=== PATIENT | female | born 1950 | race Caucasian/White ===

== ENCOUNTER → 2019-06-21 11:13 | Outpatient (CLI) | payer MEDICARE, SELFPAY ==
--- NOTE | ~2019-06-21 | MM_ITS ---
EXAMINATION: MM screening [facility] BI w jerardo HISTORY: Screening mammogram TECHNIQUE: Craniocaudal and mediolateral oblique 3-D tomosynthesis images were obtained and synthetic 2-D images were generated. CAD analysis was submitted and interpreted. COMPARISON: Comparison to multiple prior studies sequentially, with oldest reviewed study dated 10/2012. BREAST PARENCHYMAL COMPOSITION: There are scattered areas of fibroglandular density. FINDINGS: There is no evidence of suspicious mass, calcification, or architectural distortion to sugg est malignancy in either breast. There has been no suspicious interval change. IMPRESSION: 1. No mammographic evidence of malignancy. 2. Recommend routine screening mammography in one year. BI-RADS Category 1: Negative Reviewed, dictated and finalized at location A.
== END ==
PROVIDERS: PCP Family Medicine Sports Medicine; Visit Provider Obstetrics & Gynecology
DX: Z12.31 Encounter for screening mammogram for malignant neoplasm of breast (principal)
CPT/HCPCS: 77063; 77067

== ENCOUNTER → 2020-07-27 10:28 | Outpatient (CLI) | payer MEDICARE, SELFPAY ==
--- NOTE | ~2020-07-27 | MM_ITS ---
EXAMINATION: MM screening [facility] BI w jerardo HISTORY: Screening mammogram TECHNIQUE: Craniocaudal and mediolateral oblique 3-D tomosynthesis images were obtained and synthetic 2-D images were generated. CAD analysis was submitted and interpreted. COMPARISON: 06/21/2019, 05/18/2018, 05/15/2017, 05/13/2016 BREAST PARENCHYMAL COMPOSITION: There are scattered areas of fibroglandular density. FINDINGS: There is no evidence of suspicious mass, calcification, or architectural distortion to sugg est malignancy in either breast. There has been no suspicious interval change. IMPRESSION: 1. No mammographic evidence of malignancy. 2. Recommend routine screening mammography in one year. BI-RADS Category 1: Negative Reviewed, dictated and finalized at location A.
== END ==
PROVIDERS: PCP Family Medicine Sports Medicine; Visit Provider Obstetrics & Gynecology
DX: Z12.31 Encounter for screening mammogram for malignant neoplasm of breast (principal)
CPT/HCPCS: 77063; 77067

== ENCOUNTER → 2021-07-30 10:35 | Outpatient (CLI) | payer MEDICARE, SELFPAY ==
--- NOTE | ~2021-07-30 | MM_ITS ---
EXAMINATION: MM screening [facility] BI w jerardo HISTORY: Screening TECHNIQUE: Craniocaudal and mediolateral oblique 3-D tomosynthesis images were obtained and synthetic 2-D images were generated. CAD analysis was submitted and interpreted. COMPARISON: Comparison to multiple prior studies sequentially, with oldest reviewed study dated 07/2015. BREAST PARENCHYMAL COMPOSITION: There are scattered areas of fibroglandular density. FINDINGS: There is no evidence of suspicious mass, calcification, or architectural distortion to sugg est malignancy in either breast. There has been no suspicious interval change. IMPRESSION: 1. No mammographic evidence of malignancy. 2. Recommend routine screening mammography in one year. BI-RADS Category 1: Negative Reviewed, dictated and finalized at location A.
== END ==
PROVIDERS: PCP Family Medicine Sports Medicine; Visit Provider Obstetrics & Gynecology Gynecology
DX: Z12.31 Encounter for screening mammogram for malignant neoplasm of breast (principal)
CPT/HCPCS: 77063; 77067

== ENCOUNTER 2021-12-03 01:08 | Day surgery (SDC) | payer MEDICARE, SELFPAY ==
[2021-12-03] VITALS (8 sets, daily range): BP systolic 93–127; BP diastolic 57–88; PULSE 45–97; RESP 12–21; TEMP 36.6; O2SAT 96–98; BMI 21.5
--- NOTE | 2021-12-03 08:30 | ECG_ITS ---
Measurements Intervals [place] Rate: 58 P: 79 CO: 202 QRS: 67 QRSD: 110 T: 55 QT: 457 QTc: 453 Interpretive Statements SINUS BRADYCARDIA WITH OCCASIONAL SUPRAVENTRICULAR PREMATURE COMPLEXES LOW QRS VOLTAGE IN PRECORDIAL LEADS [QRS DEFLECTION < 1.0 mV IN CHEST LEADS] POOR R-WAVE PROGRESSION INCOMPLETE RIGHT BUNDLE BRANCH BLOCK COMPARED TO ECG 12/03/2021 08:50:11 NO SIGNIFICANT CHANGE Electronically Signed On 12-03-2021 17:02:29 CDT by Montez Stock M.D.
[2021-12-03 09:20] LABS: Anion Gap 9 mmol/L (8-16); Blood Urea Nitrogen 15 mg/dL (7-17); Calcium 9.5 mg/dL (8.4-10.2); Carbon Dioxide 28 mmol/L (22-30); Chloride 100 mmol/L (98-107); Estimated CRCL calculation 67 ml/min; Estimated Glomerular Filt Rate > 60; Glucose 109 mg/dL (65-110); Magnesium 2.1 mg/dL (1.6-2.3); Potassium 4.5 mmol/L (3.4-5.0); Sodium 137 mmol/L (137-145)
--- NOTE | 2021-12-03 09:24 | P.SEDATION_ITS ---
Moderate Sedation Note-Pt Data Patient Data Diagnosis: Recurrent atrial fibrillation Present Complaint: Palpitation Procedure to be performed/Plan: DC cardioversion Allergies Allergy/AdvReac Type Severity Reaction Status Date / Time No Known Allergies Allergy Unknown Verified 12/03/21 08:53 Home Medications Medication Instructions Recorded Confirmed Type levothyroxine 75 mcg tablet 75 mcg DAILY 12/03/21 12/03/21 History rivaroxaban 20 mg tablet (Xarelto) 20 mg PO DAILY 12/03/21 12/03/21 History simvastatin 10 mg tablet 10 mg PO DAILY 12/03/21 12/03/21 History sotalol 80 mg tablet 120 mg PO BID 12/03/21 12/03/21 History Current Medications: Active Medications Sodium Chloride (Normal Saline Iv) 1,000 mls @ 30 mls/hr IV CONT .Q24H MAYO Sedation/Anesthesia: No previous sedation/anesthesia problems (including family history). [facility] Family History Family History (Updated 12/02/13 @ 07:13 by DOCTOR UNKNOWN) Father Malignant neoplasm of prostate Mother Family history of heart disease in male family member before age 55 Other Carcinoma of colon Hypertension Social History Social History Smoking status: Never smoker Alcohol intake: current Mod Sed Physical Exam Physical Exam Pre Procedural Exam: Normal: Appearance, Nose, Neck, Throat, Airway, Lungs, Heart Size, Neuro Exam and Extremities and Variation: Heart Rate and Heart Rhythm (Irregularly irregular) Hours since solid foods: 12 Hours since liquid intake: 12 Mallampati Classification: class II Internal Medicine - PN: Obj Da Vital Signs Vital Signs: Vital Signs - 24 hr 12/03/21 09:22 Temperature 36.6 C Pulse Rate 97 Respiratory Rate 16 Blood Pressure 123/87 Pulse Oximetry 98 Oxygen Delivery Room Air Meds/Results Medications: Active Medications Generic Name Dose Route Start Last Admin Trade Name Freq PRN Reason Stop Dose Admin Sodium Chloride 1,000 mls @ 30 mls/hr 12/03/21 08:30 Normal Saline Iv IV CONT .Q24H MAYO Labs CBC & Chem 7: 12/03/21 08:57 Labs: Laboratory Results - last 24 hr 12/03/21 08:57 Sodium 137 Potassium 4.5 Chloride 100 Carbon Dioxide 28 Anion Gap 9 BUN 15 Creatinine 0.80 Estim Creat Clear Calc 67 Estimated GFR > 60 Glucose 109 Calcium 9.5 Magnesium 2.1 ASA Classification/Sedation ASA Classification/Sedation ASA Class: II Emergent: No Risks: Risks, benefits and alternatives explained and patient/family accepted plan for sedation. Patient re-evaluated immediately prior to sedation.
--- NOTE | 2021-12-03 09:34 | WPDCARDPROC ---
Cardiac Cath Procedure Note Date of procedure:: 12/03/21 Performing physician:: Montez Stock MD Indication:: Recurrent atrial fibrillation Brief clinical history:: This is a 71-year-old lady with a history of atrial fibrillation seen in the office last week with a symptomatic recurrence of her arrhythmia. She is taking sotalol and anticoagulated with Xarelto. An attempt at restoring sinus rhythm electrically has been scheduled for this morning Procedure Procedure performed:: DC cardioversion Sedation/Medication given:: Propofol in aliquots total dosage of 60 mg Estimated blood loss:: 0 Procedure note:: Patient was brought to the cardiac catheterization lab in the postabsorptive state in the holding area. Defibrillator patches were placed in the AP position. IV access was established in the right upper extremity. She was then given propofol and a aliquots a total dosage of 60 mg was given. This provided excellent sedation. She was then DC cardioverted in a synchronized fashion delivering 200 joules x1 shock restoring normal sinus rhythm/sinus bradycardia Findings:: As above Conclusion:: Successful uncomplicated DC cardioversion terminating atrial fibrillation restoring sinus bradycardia using 200 joules x1 shock Montez Stock MD [facility]
--- NOTE | 2021-12-03 10:15 | ECG_ITS ---
Measurements Intervals [place] Rate: 86 P: SD: 0 QRS: 60 QRSD: 118 T: 60 QT: 365 QTc: 439 Interpretive Statements ATRIAL FIBRILLATION INCOMPLETE RIGHT BUNDLE BRANCH BLOCK [90+ ms QRS DURATION, TERMINAL R IN V1/V2, 40+ ms S IN I/aVL/V4/V5/V6] POOR R-WAVE PROGRESSION ABNORMAL RHYTHM ECG NO PREVIOUS ECG AVAILABLE FOR COMPARISON Electronically Signed On 12-03-2021 16:59:58 CDT by Montez Stock M.D.
== END 2021-12-03 12:45 | disposition home or self-care (01) ==
PROVIDERS: PCP Family Medicine Sports Medicine; Visit Provider Specialist
PROC: 5A2204Z Restoration of Cardiac Rhythm, Single (ICD-10-PCS; principal; 2021-12-03 10:00)
DX: I48.0 Paroxysmal atrial fibrillation (principal); Z79.01 Long term (current) use of anticoagulants
CPT/HCPCS: 36415; 80048; 83735; 92960; J2704; J7030

== ENCOUNTER 2021-12-18 11:39 | Observation (INO) | payer MEDICARE, SELFPAY ==
[2021-12-18] VITALS (13 sets, daily range): BP systolic 100–153; BP diastolic 72–107; PULSE 58–146; RESP 12–18; TEMP 36.4–37; O2SAT 95–100; BMI 21.0
--- NOTE | ~2021-12-18 | XR_ITS ---
EXAMINATION: XR chest 2V DATE: 12/18/2021 12:32 INDICATION: Atrial fibrillation TECHNIQUE: PA and lateral views of the chest are obtained. COMPARISON: 07/09/2014 FINDINGS: The lungs are free of acute opacities. No pleural effusion or pneumothorax. The cardiomedia stinal silhouette is normal. There is moderate thoracic spondylosis. There is scarring in the lung ap ices. IMPRESSION: 1. No acute cardiopulmonary abnormality. Reviewed, dictated and finalized at location B.
--- NOTE | 2021-12-18 11:52 | ECG_ITS ---
Measurements Intervals [place] Rate: 0 P: NE: 0 QRS: QRSD: 0 T: QT: 0 QTc: 0 Interpretive Statements ATRIAL FIBRILLATION WITH RAPID VENTRICULAR ESPONSE VENTRICULAR PREMATURE COMPLEX INCOMPLETE RIGHT BUNDLE BRANCH BLOCK BASELINE ARTIFACT- AVR, AVL, AVF ABNORMAL ECG COMPARED TO ECG 12/03/2021 09:38:50 ATRIAL FIBRILLATION NOW PRESENT Electronically Signed On 12-18-2021 12:12:16 CDT by Alcon Rivera D.O.
[2021-12-18 12:00] LABS: Basophils Absolute Auto 0.1 K/mm3 (0.0-0.1); Basophils Percent Auto 0.6 % (0.2-1.2); Eosinophils Absolute Auto 0.1 K/mm3 (0-0.3); Eosinophils Percent Auto 0.7 % (0-4.4); Hematocrit 45.3 % (37.0-47.0); Hemoglobin 15.3 g/dL (12.0-15.0); Immature Granulocyte Absolute 0.02 K/mm3 (0.00-0.031); Immature Granulocyte Percent A 0.2 % (0-0.5); Lymphocytes Absolute Auto 1.91 K/mm3 (0.9-3.2); Lymphocytes Percent Auto 23.7 % (18.3-44.2); Mean Corpuscular HGB Conc 33.8 g/dl (32-36); Mean Corpuscular Hemoglobin 32.2 pg (26-34); Mean Corpuscular Volume 95.4 fl (80-100); Mean Platelet Volume 10.2 fl (7.4-10.4); Monocytes Absolute Auto 0.8 K/mm3 (0.1-0.6); Monocytes Percent Auto 10.3 % (2.6-8.5); Neutrophils Absolute Auto 5.2 K/mm3 (1.3-6.7); Neutrophils Percent Auto 64.5 % (45.5-73.1); Platelet Count Result 276 k/mm3 (150-375); Red Blood Count 4.75 M/mm3 (4.2-5.4); Red Cell Distribution Width 11.9 % (11.5-14.5); White Blood Count 8.1 K/mm3 (4.5-10.0)
--- NOTE | 2021-12-18 12:06 | ED.ARRPALP ---
HPI - Arrhythmia/Palpitations General Chief Complaint: Arrhythmia/Palpitations Stated Complaint: sent from DR joseph - 'afib RVR' Time Seen by Provider: 12/18/21 12:03 Source: patient Mode of arrival: ambulatory Limitations: no limitations History of Present Illness HPI narrative: The patient is a 71 yo female with a PMH of HLD, Hypothyroidism, a fib with RVR on anticoagulation, presenting to the ER for intermittent palpitations. Pt had recent cardioversion two weeks ago. Pt reports mild dyspnea, but no significant chest pain. She also endorses mild fatigue that is associated with her palpitation. She denies syncope, dizziness, lightheadedness. Pt was sent by Dr. Stock this morning after EKG showed a fib with RVR. Related Data Home Medications Medication Instructions Recorded Confirmed levothyroxine 75 mcg tablet 75 mcg DAILY 12/03/21 12/03/21 rivaroxaban 20 mg tablet (Xarelto) 20 mg PO DAILY 12/03/21 12/03/21 simvastatin 10 mg tablet 10 mg PO DAILY 12/03/21 12/03/21 Allergies Allergy/AdvReac Type Severity Reaction Status Date / Time No Known Allergies Allergy Unknown Verified 12/18/21 11:53 Review of Systems Review of Systems: CONSTITUTIONAL: Denies fever, chills, or sweats. EYES: Denies visual changes, redness, or discharge. ENT: Denies rhinorrhea, congestion, sore throat, or otalgia. CARDIOVASCULAR: Denies chest pain, reports palpitations RESPIRATORY: Denies cough or dyspnea. GASTROINTESTINAL: Denies abdominal pain, nausea, vomiting, or diarrhea. GENITOURINARY: Denies dysuria or hematuria. SKIN: Denies rash or itching. MUSCULOSKELETAL: Denies back pain, joint pain, or myalgia. NEUROLOGIC: Denies headache, numbness, or weakness. Reports fatigue. [facility] Family History Family History (Updated 12/02/13 @ 07:13 by DOCTOR UNKNOWN) Father Malignant neoplasm of prostate Mother Family history of heart disease in male family member before age 55 Other Carcinoma of colon Hypertension Social History Social History Smoking status: Never smoker Alcohol intake: current Exam Narrative: GENERAL: Awake, alert, conversant HEAD: Normocephalic, atraumatic. EYES: PERRLA and EOMI. ENT: Nares clear, no rhinorrhea or epistaxis. Mucous membranes moist. NECK: Supple. CHEST: No respiratory distress, breathing even and non labored HEART: Irregularly irregular, consistent atrial fibrillation with RVR ABDOMEN:Non distended, non tender EXTREMITIES: Normal range of motion. No edema. SKIN: Warm, dry, no rash. NEURO:No focal deficits. Alert and oriented x3 Course Vital Signs Vital signs: Vital Signs Temperature 37.0 C 12/18/21 11:40 Pulse Rate 143 H 12/18/21 11:40 Respiratory Rate 18 12/18/21 11:40 Blood Pressure 124/83 12/18/21 11:40 Pulse Oximetry 98 12/18/21 11:40 Oxygen Delivery Room Air 12/18/21 11:40 Temperature 37.0 C 12/18/21 11:40 Pulse Rate 80 12/18/21 15:35 Respiratory Rate 14 12/18/21 15:35 Blood Pressure 153/107 H 12/18/21 15:35 Pulse Oximetry 95 12/18/21 15:35 Oxygen Delivery Room Air 12/18/21 11:40 MDM - Arrhythmia/Palpitations MDM Narrative Medical decision making narrative: Patient presented to the emergency department for evaluation after being seen by her development scientist for atrial fibrillation with RVR, with associated mild fatigue, no chest pain and mild palpitations. The time of assessment, patient is in A. fib with RVR without ischemic changes present on EKG. Other laboratory results are reassuring. The patient was given IV fluids, IV magnesium, and after discussion with cardiology service, was recommended for her to be given oral metoprolol and admitted for observation to their service. Patient does have a mildly elevated BNP without a troponin elevation. No sign of congestive heart failure or fluid overloaded state. Differential Diagnosis Differential diagnosis: Likely palpitations, sinus tachycardia, artial fibrillation, artial flutt
[2021-12-18 12:10] LABS: INR 1.2; Prothrombin Time 14.2 Seconds (11.1-14.7)
[2021-12-18 12:11] LABS: Partial Thromboplastin Time 33.6 SECONDS (22.3-36.8)
[2021-12-18 12:17] LABS: Alanine Aminotransferase 28 U/L (6-35); Albumin Level 4.5 g/dL (3.5-5.1); Alkaline Phosphatase 88 U/L (38-126); Anion Gap 7 mmol/L (8-16); Aspartate Amino Transferase 30 U/L (14-36); Bilirubin,Total 0.5 mg/dL (0.2-1.3); Blood Urea Nitrogen 20 mg/dL (7-17); Calcium 9.7 mg/dL (8.4-10.2); Carbon Dioxide 26 mmol/L (22-30); Chloride 103 mmol/L (98-107); Estimated CRCL calculation 72 ml/min; Estimated Glomerular Filt Rate > 60; Glucose 170 mg/dL (65-110); Lipase 98 U/L (23-300); Potassium 4.4 mmol/L (3.4-5.0); Sodium 136 mmol/L (137-145)
[2021-12-18 12:29] LABS: Troponin I < 0.012 ng/mL (0.000-0.034)
[2021-12-18 12:47] LABS: NT Pro B Type Natriuretic Pept 3650 pg/mL (5-100)
[2021-12-18] MEDS: MAGNESIUM SULF 2 GM/WATER 50ML 2 GM/50 ML BAG IVPB (13:46)
[2021-12-18] MEDS: METOPROLOL TARTRATE 50 MG TAB 25 MG PO (14:16)
[2021-12-18 14:57] LABS: Troponin I < 0.012 ng/mL (0.000-0.034)
[2021-12-18 15:15] LABS: Magnesium 3.2 mg/dL (1.6-2.3); Phosphorus 3.3 mg/dL (2.5-4.5)
--- NOTE | 2021-12-18 15:53 | ADMGEN ---
This patient, Rosalba Santizo, was admitted to Medical Room 246-. Patient/family oriented to hospital policies and general routines including ID bracelet, bed and alarms, visiting hours, pain management, procedures, bathroom and other care routines, personal items, smoking policy, room service/diet, and visiting hours. Information on how to activate the Rapid Response Team has been discussed. Patient/Family are encouraged to report perceived risks to care and to ask questions if they do not understand what they are told or what they should do.
[2021-12-18 18:56] LABS: Troponin I < 0.012 ng/mL (0.000-0.034)
[2021-12-18] MEDS: SOTALOL HCL 40 MG, SOTALOL HCL 80 MG 120 MG PO (20:13)
[2021-12-18] MEDS: METOPROLOL TARTRATE 25 MG TABLET PO (20:22)
[2021-12-18] MEDS: RIVAROXABAN 20 MG TABLET PO (20:22)
[2021-12-18] MEDS: SIMVASTATIN 10 MG TABLET PO (20:22)
[2021-12-19] VITALS (10 sets, daily range): BP systolic 109–118; BP diastolic 73–75; PULSE 65–112; RESP 16–18; TEMP 36–36.2; O2SAT 99–100
[2021-12-19] MEDS: LEVOTHYROXINE SODIUM 75 MCG TABLET BY MOUTH (05:58)
[2021-12-19] MEDS: METOPROLOL TARTRATE 25 MG TABLET PO (08:38)
[2021-12-19] MEDS: SOTALOL HCL 40 MG, SOTALOL HCL 80 MG 120 MG PO (08:39)
[2021-12-19] MEDS: ACETAMINOPHEN 325 MG TABLET 650 MG PO (08:43)
--- NOTE | 2021-12-19 08:55 | ECG_ITS ---
Measurements Intervals [place] Rate: 89 P: [place]: 0 QRS: 14 QRSD: 105 T: 32 QT: 388 QTc: 474 Interpretive Statements ATRIAL FIBRILLATION INCOMPLETE RIGHT BUNDLE BRANCH BLOCK ABNORMAL ECG COMPARED TO ECG 12/18/2021 11:51:18 HR HAS DECREASED Electronically Signed On 12-19-2021 14:32:17 CDT by Alcon Rivera D.O.
--- NOTE | 2021-12-19 08:57 | PM.IMHP ---
H&P: HPI History of Present Illness Date/Time: date of service: 12/19/21 08:57 Chief Complaint: I am back in atrial fibrillation with feeling tired, Short of breath, and palpitations Narrative: Patient is a very pleasant 71 year female with a past medical history significant for mixed hyperlipidemia, hypothyroidism and paroxysmal atrial fibrillation on systemic anticoagulation with Xarelto having been maintained on sotalol who underwent cardioversion for AFib with a RVR symptomatic on 12/04/2021 which was successful. However, she proximally 2 days or so prior to admission she began to experience palpitations, fatigue decreased activity tolerance and shortness of breath with exertion but no near-syncope or syncope. She denies chest pain, edema, orthopnea or PND. She presented to the office where 12 lead EKG confirmed AFib with RVR. Recommendations per Dr. Stock were to admit her to the hospital for heart rate control strategy in the interval to improve symptoms tolerance prior to referral to palpation electrophysiology evaluation for ablation options. Patient is feeling better with improved heart rate control yet is not as active as she is at home. She did note some palpitations and fatigue ambulating to the restroom but denies significant shortness of breath. Telemetry heart rate overnight was reasonably controlled in the 80's to 100s While asleep increasing to the 120 to 130s with ambulation. While she is currently aware of her atrial fibrillation of present she is comfortable at rest. she has not missed a single dose of anticoagulation and has been compliant with medications as prescribed. Review of Systems Review of Systems: No fevers, chills, near-syncope, syncope, bright red blood per rectum, melena, hematuria dysuria, headache, vision changes, orthopnea, PND or significant weight gain or weight loss hair skin or nail changes. Remainder of the review of systems otherwise negative. All systems reviewed & are unremarkable except as noted in HPI and below Constitutional: Constitutional: Reports as per HPI and Reports no additional constitutional complaints Eyes: Eyes: Reports as per HPI and Reports no additional eye complaints ENT: Reports system reviewed and no additional complaints, except as documented and Reports as per HPI Cardiovascular: Cardiovascular: Reports as per HPI and Reports no additional cardiovascular complaints Respiratory: Respiratory: Reports as per HPI and Reports no additional respiratory complaints Gastrointestinal: Gastrointestinal: Reports as per HPI and Reports no additional gastrointestinal complaints Genitourinary: Genitourinary: Reports as per HPI Musculoskeletal: Musculoskeletal: Reports no additional musculoskeletal complaints and Reports as per HPI Integumentary/Breasts: Skin/Breast: Reports system reviewed and no additional complaints, except as docu and Reports as per HPI Neurologic: Reports system reviewed and no additional complaints, except as documented and Reports as per HPI Psychiatric: Psychiatric: Reports no additional psychiatric complaints and Reports as per HPI Endocrine: Endocrine: Reports no additional endocrine complaints and Reports as per HPI Hematologic/Lymphatic: Hematologic/Lymphatic: Reports no additional hematologic/lymphatic complaints and Reports as per HPI Allergic/Immunologic: Allergic/Immunologic: Reports no additional allergic/immunologic complaints and Reports as per HPI PMFSH Past Medical History Medical History Atrial fibrillation with RVR Hyperlipidemia Hypothyroidism Surgical History Surgical History No known problems Family History Family History Father Malignant neoplasm of prostate Mother Family history of heart disease in male family member before age 55 Other Carc
[2021-12-19] MEDS: METOPROLOL TARTRATE 12.5 MG TABLET PO (10:08)
--- NOTE | 2021-12-19 15:53 | PM.DS ---
DS: Admitting Diagnosis Discharge Date 12/19/2021 Admitting Diagnosis Atrial fibrillation with rapid ventricular response DS: Discharge Diagnosis Discharge Diagnosis (1) Atrial fibrillation with RVR: Code(s): I48.91 - Unspecified atrial fibrillation Status: Acute (2) Encounter for monitoring sotalol therapy: Code(s): Z51.81 - Encounter for therapeutic drug level monitoring; Z79.899 - Other usp (current) drug therapy Status: Acute (3) Chronic anticoagulation: Code(s): Z79.01 - intermediate (current) use of anticoagulants Status: Acute DS: Summary Hospital Course Reason for hospitalization: Symptomatic atrial fibrillation with rapid ventricular response Hospital Course: Patient was admitted as an outpatient by Dr. Stock for heart rate control strategy with AFib with RVR which patient was quite symptomatic. She will be referred to electrophysiology outpatient for additional management considerations as she has essentially failed sotalol after having recent cardioversion and prompt recurrence of AFib with RVR. However, given the temporary nature of antiarrhythmic management options due to the need to wash out sotalol prior to initiating alternative antiarrhythmic therapy the decision was made to continue sotalol and add additional beta-rikki therapy for rate control. She metoprolol tartrate 25 mg twice daily was up titrated to 37.5 mg twice daily which heart rate blood pressure Well tolerated with much better control. With ambulation her heart rate was up to the 120s and patient tolerated this much better than prior to admission. While she is still symptomatic this is acceptable to her and is comfortable discharge home. We discussed at great length suboptimal nature of the management and the ongoing likelihood she will be at least somewhat symptomatic but to minimize this at least to a tolerable degree prior to her evaluation with electrophysiology. Patient was very comfortable with this plan of care. Status at Discharge Cognitive/behavioral status at discharge: Competent Functional status at discharge: independent ambulation Time Spent with Patient Time attestation: Total time spent providing and/or coordinating discharge services: 32 minutes Time spent: Greater than 30 minutes (32 minutes) Exam Narrative: General: very pleasant female sitting upright in bed no apparent distress breathing comfortably speaking full sentences,Well developed, alert and oriented x3. pleasant, and cooperative. Head: atraumatic, normocephalic Eyes: EOM intact, sclerae anicteric, conjunctivae unremarkable Ears/Nose: external inspection of ears and nose were grossly normal Mouth/Throat: oral mucosa pink and moist Neck: supple, normal range of motion, no jugular venous distention or carotid bruits, thyroid nonpalpable, trachea midline. Cardiac: tachycardic, irregularly irregular rate and rhythm, normal S1-S2, no murmurs Lungs: Clear to auscultation bilaterally, no rales, wheezes, or rhonchi. Abdomen: Soft, nontender, nondistended, positive bowel sounds throughout. No appreciable hepatosplenomegaly, no rebound guarding or rigidity noted. Abdominal aorta nonpalpable, no appreciable bruits. Extremities: No edema, clubbing, and or cyanosis. Extremities warm and well perfused. Skin: Warm and dry without ecchymoses, rashes, and/or petechiae. Musculoskeletal: Muscle strength and tone intact throughout without obvious deformities. Vascular: Carotid upstrokes 2+ bilaterally, radial pulses 2+ bilaterally, dorsalis pedis pulses 2+ bilaterally, posterior tibialis pulses palpable bilaterally. Neurologic: Cranial nerves 2-12 grossly intact, examination grossly nonfocal Psychiatric: Mood calm and appropriate. DS: Data Data Completed and Pending Labs on day of discharge: Labs from last 24 hours 12/18/21 18:17 Troponin I < 0.012 Discharge Plan
== END 2021-12-19 17:41 | disposition home or self-care (01) ==
LOC: ANHED 14:36 → ANH2MED 14:51
PROVIDERS: Emergency Medicine; Admitting Provider Internal Medicine Cardiovascular Disease; Emergency Provider Emergency Medicine; PCP Family Medicine Sports Medicine; Visit Provider Internal Medicine Cardiovascular Disease
DX: I48.91 Unspecified atrial fibrillation (principal); R00.2 Palpitations; E78.5 Hyperlipidemia, unspecified; E03.9 Hypothyroidism, unspecified; R06.00 Dyspnea, unspecified; R53.83 Other fatigue; R79.89 Other specified abnormal findings of blood chemistry; I49.3 Ventricular premature depolarization; I45.10 Unspecified right bundle-branch block; Z79.01 Long term (current) use of anticoagulants; Z79.899 Other long term (current) drug therapy; Z82.49 Family history of ischemic heart disease and other diseases of the circulatory system
CPT/HCPCS: 36415; 71046; 80053; 83690; 83735; 83880; 84100; 84443; 84484; 85025; 85610; 85730; 93005; 96365; 99285; A9270; G0378; J3475

== ENCOUNTER 2022-01-11 10:41 | Outpatient (CLI) | payer MEDICARE, SELFPAY | END 2022-01-11 10:42 | disposition home or self-care (01) | LOC: ANHLAB 10:44 | PROVIDERS: PCP Family Medicine Sports Medicine | DX: I33.0 Acute and subacute infective endocarditis (principal) | CPT/HCPCS: 87040 ==

== ENCOUNTER → 2022-08-01 10:20 | Outpatient (CLI) | payer MEDICARE, SELFPAY ==
--- NOTE | ~2022-08-01 | MM_ITS ---
EXAMINATION: MM screening [place] BI w jerardo HISTORY: Screening mammogram TECHNIQUE: Craniocaudal and mediolateral oblique 3-D tomosynthesis images were obtained and synthetic 2-D images were generated. CAD analysis was submitted and interpreted. COMPARISON: July 30, 2021, July 27, 2020, June 21, 2019 bilateral screening mammogram examinations BREAST PARENCHYMAL COMPOSITION: There are scattered areas of fibroglandular density. FINDINGS: There is no evidence of suspicious mass, calcification, or architectural distortion to sugg est malignancy in either breast. There has been no suspicious interval change. IMPRESSION: 1. No mammographic evidence of malignancy. 2. Recommend routine screening mammography in one year. BI-RADS Category 1: Negative Reviewed, dictated and finalized at location A.
== END ==
PROVIDERS: PCP Family Medicine Sports Medicine; Visit Provider Advanced Practice Midwife
DX: Z12.31 Encounter for screening mammogram for malignant neoplasm of breast (principal)
CPT/HCPCS: 77063; 77067

== ENCOUNTER 2023-08-06 10:08 | Outpatient (CLI) | payer MEDICARE, SELFPAY ==
[2023-08-06 10:29] LABS: Basophils Percent Auto 0.7 % (0.2-1.2); Eosinophils Absolute Auto 0.1 K/mm3 (0-0.3); Hemoglobin 13.6 g/dL (12.0-15.0); Lymphocytes Absolute Auto 1.78 K/mm3 (0.9-3.2); Lymphocytes Percent Auto 32.9 % (18.3-44.2); Mean Corpuscular Hemoglobin 32.6 pg (26-34); Mean Corpuscular Volume 95.9 fl (80-100); Mean Platelet Volume 9.7 fl (7.4-10.4); Monocytes Absolute Auto 0.7 K/mm3 (0.1-0.6); Monocytes Percent Auto 13.1 % (2.6-8.5); Neutrophils Absolute Auto 2.8 K/mm3 (1.3-6.7); Neutrophils Percent Auto 51.3 % (45.5-73.1); Platelet Count Result 232 k/mm3 (150-375); Red Blood Count 4.17 M/mm3 (4.2-5.4); White Blood Count 5.4 K/mm3 (4.5-10.0)
[2023-08-06 10:39] LABS: Anion Gap 5 mmol/L (4-12); Blood Urea Nitrogen 16 mg/dL (7-17); Calcium 9.8 mg/dL (8.4-10.2); Carbon Dioxide 29 mmol/L (22-30); Chloride 103 mmol/L (98-107); Estimated Glomerular Filt Rate > 60; Glucose 89 mg/dL (65-110); Potassium 4.6 mmol/L (3.4-5.0); Sodium 137 mmol/L (137-145)
== END 2023-08-06 10:09 | disposition home or self-care (01) ==
LOC: ANHLAB 10:11
PROVIDERS: PCP Family Medicine; Visit Provider Internal Medicine Cardiovascular Disease
DX: I48.91 Unspecified atrial fibrillation (principal); Z01.812 Encounter for preprocedural laboratory examination
CPT/HCPCS: 36415; 80048; 85025

== ENCOUNTER 2023-11-17 12:33 | Outpatient (CLI) | payer MEDICARE, SELFPAY ==
--- NOTE | ~2023-11-17 | MM_ITS ---
EXAMINATION: MM screening [facility] BI w jerardo HISTORY: Screening TECHNIQUE: Craniocaudal and mediolateral oblique 3-D tomosynthesis images were obtained and synthetic 2-D images were generated. CAD analysis was submitted and interpreted. COMPARISON: Comparison to multiple prior studies sequentially, with oldest reviewed study dated 05/18. BREAST PARENCHYMAL COMPOSITION: Not dense: There are scattered areas of fibroglandular density. FINDINGS: There is no evidence of suspicious mass, calcification, or architectural distortion to sugg est malignancy in either breast. There has been no suspicious interval change. IMPRESSION: 1. No mammographic evidence of malignancy. 2. Recommend routine screening mammography in one year. BI-RADS Category 1: Negative Reviewed, dictated and finalized at location B.
== END 2023-11-17 12:34 ==
LOC: MICIMG 12:35
PROVIDERS: PCP Family Medicine; Visit Provider Family Medicine
DX: Z12.31 Encounter for screening mammogram for malignant neoplasm of breast (principal)
CPT/HCPCS: 77063; 77067

== ENCOUNTER → 2024-08-12 01:08 | Day surgery (SDC) | payer MEDICARE, SELFPAY ==
[2024-08-11 15:15] VITALS: BMI 21.4
--- OUTSIDE RECORDS SUMMARY | 2024-08-12 01:10 | XMS_ITS | Clinical Summary ---
Author Organization [facility] [address] [facility] 162 Address [address] [place] [address] Care Team Providers Care Livestock Speculator Name Role Phone Heri Haas MD Primary Care Provider [phone] Allergies No known active allergies Medications multivitamin tablet tablet take 1 by Oral route once 0 0 08/20/19 15 Active CALCIUM CARBONATE/VITAMI N D3 (CALCIUM 600 WITH VITAMIN D3 ORAL) Take 600 mg by mouth nightly Active omega-3 fatty acids-fish oil 300-1,000 mg capsule Take 1 capsule (1 g total) by mouth nightly Active MAGNESIUM ORAL Take 300-400 mg by mouth nightly Active simvastatin (ZOCOR) 10 mg tablet Take 1 tablet (10 mg total) by mouth nightly 04/13/19 20 Active levothyroxine (SYNTHROID) 75 mcg tablet Take 1 tablet (75 mcg total) by mouth regulatory scientist before breakfast Active ascorbic acid 500 mg tablet,chewable Take 1 tablet/chew tab (500 mg total) by mouth nightly 30 tablet/chew tab 3 01/18/20 22 Active Xarelto 20 mg tabletIndication s:Lone atrial fibrillation (HCC) TAKE 1 TABLET EVERY DAY 90 tablet 3 04/13/19 25 Active sotaloL (BETAPACE) 120 mg tabletIndication s:Lone atrial fibrillation (HCC) Take 1 tablet (120 mg total) by mouth 2 (two) times a day 180 tablet 1 06/23/19 25 12/19/ 025 Active lisinopriL (PRINIVIL,ZESTRI L) 10 mg tablet TAKE 1 TABLET EVERY DAY 90 tablet 3 08/10/19 25 Active lisinopriL (PRINIVIL,ZESTRI L) 10 mg tablet Take 1 tablet (10 mg total) by mouth daily 90 tablet 3 12/25/19 24 025 Discontinued Active Problems Problem Noted Date Diagnosed Date Persistent atrial fibrillation 09/19/2023 Assessment & Plan (01/27/2024 3:15 PM CDT): Chronic, stable. Doing well, with improving AF burden throughout blanking period. Recommend stopping sotalol and observing. --Stop sotalol --Continue Xarelto 20 mg daily Assessment & Plan (11/18/2023 2:20 PM CDT): S/p repeat PVI by Dr. Murphy 2 months ago. Several episodes of PAF during blanking. I reassured pt regarding blanking period. Plan to follow-up in 2 months to reevaluate. ECG personally interpreted today- acceptable QT for continue used of sotalol. --Continue sotalol 120 mg BID for now. Plan to stop at follow-up if no AF. 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 Assessment & Plan (11/18/2023 2:18 PM CDT): asdfasdf Encounters Date Type Department Care Team Description 08/10/2024 Telephone [facility] Medical Group Cardiology [address] [facility] [address] [place] [address] Montez Stock MD 08/09/2024 10:30 AM CDT Office Visit [facility] [address] [facility] [address] [place] [phone] Lyssa Ireland NP Cardiac arrhythmia, unspecified cardiac arrhythmia type (Primary Dx) 06/09/2024 Orders Only [facility] [address] [facility] [address], [place] [address] Jose Luis Frazier III, MD Persistent atrial fibrillation (HCC) (Primary Dx); Paroxysmal atrial fibrillation (HCC) from Last 3 Months Surgical History Surgery Date Site/Laterality Comments HAND SURGERY Left growth removed HYSTEROSCOPY Medical History Medical History Date Comments Heart disease Atrial fibrillation (HCC) Mitral valve prolapse Hypothyroidism Hypertension Family History Medical History Relation Name Comments Other Brother 2 Alive and well; Cancer Father Cheko Webster pancreatic Hearing loss Father Cheko Chowdhurytte Heart disease Maternal Grandmother Zulay Islas Arthritis Mother Bianca Vette Atrial fibrillation Mother Bianca Vette Heart disease Mother Bianca Vette Hypertension Mother Bianca Vette Cancer Paternal Grandfather Mauro Webster Relation Name Status Comments Brother 1 Alive Brother 2 Father Cheko Chowdhuryttcaro Maternal Grandmother Zulay Islas Mother Bianca Chowdhuryttcaro Paternal Grandfather Mauro Webster Social History Tobacco Use Types Packs/Day Years Used Date Smoking Tobacco: Never Passive Smoke Exposure: Never Smokeless Tobacco: Never Tobacco Cessation:Counseling Given: Not Answered Alcohol Use Standard Drinks/Week Comments Yes 0 (1 standard drink = 0.6 oz pur e alcohol) AUDIT-C Answer Date Recorded Q1: How often do you have a drink containing alc ohol? Monthly or less 09/19/2023 Q2: How many drinks containi ng alcohol do you have on a typical day when you are drinking? 1 or 2 09/19/2023 Frequency of Binge Drinking Not on file 09/05 Personal Safety Answer Date Recorded Have you ever been in or are you currently in a harmful physical or emotional relationship or is someone making you feel afraid or unsafe? Denies 09/19/2023 Comments No Sex and Gender Information Value Date Recorded Sex Assigned at Not on file Legal Sex Female 3:37 AM CLOTH SHRINKING SUPERVISOR Gender Identity Female 09/29/2018 9:09 AM CDT Sexual Orientation Straight 09/29/2018 9: 09 AM CDT Obstetrics History Last Filed Vital Signs Vital Sign Reading Time Taken Comments Blood Pressure 120/70 08/09/2024 10:20 AM CDT Pulse 70 03/08/2024 8:37 AM CLOTH SHRINKING SUPERVISOR Temperature 36.2 C (97.1 F) 09/19/2023 10:31 AM CDT Respiratory Rate 14 10/14/2023 8:04 AM CDT Oxygen Saturation 98% 03/08/2024 8:37 AM CLOTH SHRINKING SUPERVISOR Inhaled Oxygen Concentration - - Weight 73.8 kg (162 lb 9.6 oz) 08/09/2024 10:20 AM CDT Height 185.4 cm (6' 0.99 ) 08/09/2024 10:20 AM C DT Body Mass Index 21.46 08/09/2024 10:20 AM CDT Plan of Treatment Health Maintenance Due Date Last Done Comments Breast Cancer Screening-Mammogram 1950 Colon Cancer Screening-Colonoscopy 1950 Depression Screening 1950 Hepatitis C Screening 1950 Osteoporosis Screening-Bone Density Scan 1950 DTaP/Tdap/Td Vaccine (1 - Tdap) 02/06/1963 Hepatitis B Screening 02/06/1970 Well Visit 65+ 02/06/2017 Pneumococcal vaccine 65+ (2 of 2 - PCV) 02/01/2021 02/02/2020 Covid-19 Vaccine (5 - 2023-2 5 season) 2023 12/20/2021, 09/26/2021, 03/09/2021, Additional history exists Fall Risk Assessment 09/18/2024 09/19/2023, 02/26/2022, 12/25/2021 Influenza Vaccine (Season Ended) 2024 12/20/2021, 12/15/2020, 01/07/2018, Additional history exists Zoster Vaccine Completed 04/02/2019, 01/06, 09/18/2014 Medical Devices Implanted Type Area Colleter Device Identifier Shelf Expiration Date Model / Serial / Lot [employer] Vascade Mvp 6-12fr Venous Closure [id number] - [id number] Implanted:Qty: 1 on 01/16/2022 by Carlos Murphy MD at [facility] [employer] [id number] 10/18/2023 800-612C-1 0U / / [employer] Vascade Mvp 6-12fr Venous Closure [id number] - [id number] Implanted:Qty: 1 on 01/16/2022 by Carlos Murphy MD at [facility] [employer] 800-612C-1 0U / / [employer] Vascade Mvp 6-12fr Venous Closure [id number] - [id number] Implanted:Qty: 1 on 01/16/2022 by Carlos Murphy MD at [facility] 800-612C-1 0U / / [employer] Vascade Mvp 6-12fr Venous Closure [id number] - [id number] Implanted:Qty: 1 on 09/19/2023 by Carlos Murphy MD at [facility] 05/26/2025 800-612C-1 0U / / [id number] [employer] Vascade Mvp 6-12fr Venous Closure [id number] - [id number] Implanted:Qty: 1 on 09/19/2023 by Carlos Murphy MD at [facility] 05/26/2025 800-612C-1 0U / / [id number] [facility] Vascade Mvp 6-12fr Venous Closure [id number] - [id number] Implanted:Qty: 1 on 09/19/2023 by Carlos Murphy MD at [facility] 05/26/2025 800-612C-1 0U / / [id number] Procedures Procedure Name Priority Date/Time Associated Diagnosis Comments ECG 12-LEAD Routine 08/09/2024 10:20 AM CDT Cardiac arrhythmia, unspecified cardiac arrhythmia type from Last 3 Months Results * ECG 12 lead (08/09/2024 10:20 AM CDT) Sharon Moss IT ADMIN ECG ORDERABLES Shanelle l Result from Last 3 Months Insurance HU[employer]NA CHOICE MEDICARE PPO HU[employer]NA CHOICE MEDICARE PPO Care Teams Livestock Speculator Relationship Specialty Start Date End Date Heri Haas MD [facility] [place] [address] PCP - General Family Medicine 09/18/23
--- OUTSIDE RECORDS SUMMARY | 2024-08-12 01:10 | XMS_ITS | Clinical Summary ---
Author Organization [facility] Address [address] [facility] [place] [address] Care Team Providers Care Slunk Skinner Name Role Phone Yvon Sow MD Primary Care Provider [phone] [facility],non-owned Affiliates and Associated Physician Practices is amultiple site organization consisting of ambulatory clinics and hospital sitesin [place], [place], [place] and [place]. This disclosure is being madepursuant to the Care Everywhere program and may not contain all information available regarding this patient. Last updated 17.[facility] Allergies No known active allergies Medications * Be aware that medications may not be up to date on this document. Alwaysverify current medications with the patient. sotalol (BETAPACE) 80 MG tablet Take 80 mg by mouth 2 times daily Active rivaroxaban (XARELTO) 20 MG tablet Take 20 mg by mouth daily with food Active simvastatin (ZOCOR) 10 MG tablet Take 10 mg by mouth at bedtime Active levothyroxine (SYNTHROID) 75 MCG tablet Take 75 mcg by mouth daily before breakfast Active Social History Tobacco Use Types Packs/Day Years Used Date Smoking Tobacco: Never Smokeless Tobacco: Never Alcohol Use Standard Drinks/Week Comments Yes 0 (1 standard drink = 0.6 oz pur e alcohol) Comments Unknown Sex and Gender Information Value Date Recorded Sex Assigned at Not on file Legal Sex Female 10:35 AM INFRASTRUCTURE ANALYST Gender Identity Not on file Sexual Orientation Not on file Last Filed Vital Signs Vital Sign Reading Time Taken Comments Blood Pressure 132/71 05/24/2021 12:40 PM INFRASTRUCTURE ANALYST Pulse 58 05/24/2021 12:15 PM INFRASTRUCTURE ANALYST Temperature 36.1 C (96.9 F) 05/24/2021 12:00 PM INFRASTRUCTURE ANALYST Respiratory Rate 14 05/24/2021 12:35 PM INFRASTRUCTURE ANALYST Oxygen Saturation 100% 05/24/2021 12:40 PM INFRASTRUCTURE ANALYST Inhaled Oxygen Concentration - - Weight 73.5 kg (162 lb) 05/24/2021 9:53 AM INFRASTRUCTURE ANALYST Height 185.4 cm (6' 1 ) 05/24/2021 9:53 AM INFRASTRUCTURE ANALYST Body Mass Index 21.37 05/24/2021 9:53 AM INFRASTRUCTURE ANALYST Plan of Treatment Health Maintenance Due Date Last Done Comments BONE DENSITY TESTING 1952 COLOGUARD (AGES 45-75) - COL ON CA SCREENING 1952 COLON MONITORING 1952 COLONOSCOPY - COLON CA SCREENING 1952 CT COLONOGRAPHY - COLON CA SCREENING 1952 Colorectal Cancer Screening 1952 FIT - COLON CA SCREENING 1952 FLEX SIG - COLON CA SCREENING 1952 MAMMOGRAM 1952 HEPATITIS C SCREENING 02/02/1970 DTAP/TDAP/TD VACCINES (1 - Tdap) 02/06/1971 PNEUMOCOCCAL VACCINE 50+ (1 of 1 - PCV) 02/06/2002 ZOSTER VACCINE (1 of 2) 02/06/2002 COVID-19 VACCINE (3 - 2023-2 5 season) 2023 03/09/2021, 06/12/2020 DEPRESSION SCREENING 04/07/2024 INFLUENZA VACCINE (Season Ended) 2024 12/15/2020 Respiratory Syncytial Virus (RSV) Vaccine Pt: or over 60 yrs (1 - 1-dose 75+ series) 02/06/2027 HEPATITIS B VACCINE Aged Out No longe r eligible based on patient's age to complete this topic HIB VACCINE Aged Out No longer eligi ble based on patient's age to complete this topic HPV VACCINE Aged Out No longer eligi ble based on patient's age to complete this topic MENINGOCOCCAL (Group B) VACCINE SHARED DECISION-MAKING Aged Out No longer eligible based on patient's age to complete this topic MENINGOCOCCAL GROUPS A/C/Y/W VACCINE Aged Out No longer eligible b ased on patient's age to complete this topic Insurance [facility] Care Teams Slunk Skinner Relationship Specialty Start Date End Date Yvon Sow MD [address] [place] [address] PCP - General Family Medicine 05/24/21
--- OUTSIDE RECORDS SUMMARY | 2024-08-12 01:10 | XMS_ITS | Referral Summary ---
Author Organization [facility] [address] [facility] 162 Address [address] [place] [address] Care Team Providers Care Will Call Order Clerk Name Role Phone Heri Haas MD Primary Care Provider [phone] Encounters Date Type Department Care Team Description 08/10/2024 Telephone [facility] Medical Group Cardiology [address] [facility] [address] [place] [address] Montez Stock MD 08/09/2024 10:30 AM CDT Office Visit [facility]ia Center [address] [facility] [address] [place] [address] Lyssa Ireland NP Cardiac arrhythmia, unspecified cardiac arrhythmia type (Primary Dx) 06/09/2024 Orders Only Arrhythm[facility] Center [address] [facility] [address] [place] [address] Jose Luis Frazier III, MD Persistent atrial fibrillation (HCC) (Primary Dx); Paroxysmal atrial fibrillation (HCC) from Last 3 Months Allergies No known active allergies Medications multivitamin [...] 1 tablet (75 mcg total) by mouth early childhood education coordinator before breakfast Active ascorbic acid 500 mg [...] a day 180 tablet 1 06/23/19 25 025 Active lisinopriL (PRINIVIL,ZESTRI L) 10 mg [...] & Plan (11/18/2023 2:18 PM CDT): asdfasdf Social History Tobacco Use Types Packs/Day Years [...] on file Legal Sex Female 3:37 AM LOTTERIES AGENT Gender Identity Female 09/29/2018 9:09 AM CDT Sexual Orientation Straight 09/29/2018 9: 09 AM CDT Last Filed Vital Signs Vital Sign Reading Time Taken Comments Blood Pressure 120/70 08/09/2024 10:20 AM CDT Pulse 70 03/08/2024 8:37 AM LOTTERIES AGENT Temperature 36.2 C (97.1 F) 09/19/2023 10:31 AM CDT Respiratory Rate 14 10/14/2023 8:04 AM CDT Oxygen Saturation 98% 03/08/2024 8:37 AM LOTTERIES AGENT Inhaled Oxygen Concentration - - Weight 73.8 kg (162 lb 9.6 oz) 08/09/2024 10:20 AM CDT Height 185.4 cm (6' 0.99 ) 08/09/2024 10:20 AM C DT Body Mass Index 21.46 08/09/2024 10:20 AM CDT Plan of Treatment Not on file Medical Devices Implanted Type Area Trust Advisor Device Identifier Shelf Expiration Date Model / Serial / Lot [employer] Vascade Mvp 6-12fr Venous Closure [id number] - [id number] Implanted:Qty: 1 on 01/16/2022 by Carlos Murphy MD at [facility] [employer] [id number] 10/18/2023 800-612C-1 0U / / [employer] Vascade Mvp 6-12fr Venous Closure [id number] - [id number] Implanted:Qty: 1 on 01/16/2022 by Carlos Murphy MD at [facility] 800-612C-1 0U / / [employer] Vascade Mvp 6-12fr Venous Closure [id number] - [id number] Implanted:Qty: 1 on 01/16/2022 by Carlos Murphy MD at [facility] 800-612C-1 0U / / [employer] Vascade Mvp 6-12fr Venous Closure [id number] - [id number] Implanted:Qty: 1 on 09/19/2023 by Carlos Murphy MD at [facility] 05/26/2025 800-612C-1 0U / / [id number] [employer] Vascade Mvp 6-12fr Venous Closure [id number] - [id number] Implanted:Qty: 1 on 09/19/2023 by Carlos Murphy MD at [facility] 05/26/2025 800-612C-1 0U / / [id number] [employer] Vascade Mvp 6-12fr Venous Closure [id number] - [id number] Implanted:Qty: 1 on 09/19/2023 by Carlos Murphy MD at [facility] 05/26/2025 800-612C-1 0U / / [id number] Procedures Procedure Name Priority Date/Time Associated Diagnosis Comments ECG 12-LEAD Routine 08/09/2024 10:20 AM CDT Cardiac arrhythmia, unspecified cardiac arrhythmia type from Last 3 Months Results * ECG 12 lead (08/09/2024 10:20 AM CDT) Sharon Moss WAY INSPECTOR ECG ORDERABLES Shanelle l Result from Last 3 Months Insurance HU[employer] CHOICE MEDICARE PPO HU[employer] CHOICE MEDICARE PPO Care Teams Will Call Order Clerk Relationship Specialty Start Date End Date Heri Haas MD [address] [place] [address] PCP - General Family Medicine 09/18/23
--- OUTSIDE RECORDS SUMMARY | 2024-08-12 07:03 | XMS_ITS | Referral Summary ---
Author Organization [facility] [address] [facility] 162 Address [address] [place] [address] Care Team Providers Care Application Security Engineer Name Role Phone Heri Haas MD Primary Care Provider Encounters Date Type Department Care Team Description 08/10/2024 Telephone [facility] Medical Group Cardiology [address] [facility] [address] [place] [address] Montez Stock MD 08/09/2024 10:30 AM CDT Office Visit [facility] [address] [facility] [address] [place] [address] Lyssa Ireland NP Cardiac arrhythmia, unspecified cardiac arrhythmia type (Primary Dx) 06/09/2024 Orders Only [facility] [address] [facility] [address] [place] [address] Jose Luis Frazier III, MD Persistent [...] 1 tablet (75 mcg total) by mouth clinical data abstractor before breakfast Active ascorbic acid 500 mg [...] on file Legal Sex Female 3:37 AM AUTOMOBILE DAMAGE APPRAISER Gender Identity Female 09/29/2018 9:09 AM CDT Sexual Orientation Straight 09/29/2018 9: 09 AM CDT Last Filed Vital Signs Vital Sign Reading Time Taken Comments Blood Pressure 120/70 08/09/2024 10:20 AM CDT Pulse 70 03/08/2024 8:37 AM AUTOMOBILE DAMAGE APPRAISER Temperature 36.2 C (97.1 F) 09/19/2023 10:31 AM CDT Respiratory Rate 14 10/14/2023 8:04 AM CDT Oxygen Saturation 98% 03/08/2024 8:37 AM AUTOMOBILE DAMAGE APPRAISER Inhaled Oxygen Concentration - - Weight 73.8 kg (162 lb 9.6 oz) 08/09/2024 10:20 AM CDT Height 185.4 cm (6' 0.99 ) 08/09/2024 10:20 AM C DT Body Mass Index 21.46 08/09/2024 10:20 AM CDT Plan of Treatment Not on file Medical Devices Implanted Type Area Discharge Planner Device Identifier Shelf Expiration Date Model / Serial / Lot [employer] Vascade Mvp 6-12fr Venous Closure [id number] - [id number] Implanted:Qty: 1 on 01/16/2022 by Carlos Murphy MD at [facility] [employer] [id number] 10/18/2023 800-612C-1 0U / / [employer] Vascade Mvp 6-12fr Venous Closure [id number] - [id number] Implanted:Qty: 1 on 01/16/2022 by Carlos Murphy MD at [facility] 800-612C-1 0U / / [employer] Vascade Mvp 6-12fr Venous Closure [id number] - [id number] Implanted:Qty: 1 on 01/16/2022 by Carlos Murphy MD at [facility] 800-612C-1 0U / / [employer] Vascade Mvp 6-12fr Venous Closure [id number] - [id number] Implanted:Qty: 1 on 09/19/2023 by Carlos Murphy MD at [facility] 05/26/2025 800-612C-1 0U / / [id number] [employer] Vascade Mvp 6-12fr Venous Closure [id number] - [id number] Implanted:Qty: 1 on 09/19/2023 by Carlos Murphy MD at [facility] 05/26/2025 800-612C-1 0U / / [id number] [employer] Vascade Mvp 6-12fr Venous Closure [id number] - [id number] Implanted:Qty: 1 on 09/19/2023 by Carlos Murphy MD at [facility] 05/26/2025 800-612C-1 0U / / [id number] 6B Procedures Procedure Name Priority Date/Time Associated Diagnosis Comments ECG 12-LEAD Routine 08/09/2024 10:20 AM CDT Cardiac arrhythmia, unspecified cardiac arrhythmia type from Last 3 Months Results * ECG 12 lead (08/09/2024 10:20 AM CDT) Sharon Moss RUN BOAT OPERATOR ECG ORDERABLES Shanelle l Result from Last 3 Months Insurance HU[employer]NA CHOICE MEDICARE PPO HUMANA CHOICE MEDICARE PPO Care Teams Application Security Engineer Relationship Specialty Start Date End Date Heri Haas MD [address] [place] [address] PCP - General Family Medicine 09/18/23
--- OUTSIDE RECORDS SUMMARY | 2024-08-12 07:03 | XMS_ITS | Clinical Summary ---
Author Organization [facility] [address] [facility] 162 Address [address] [place] [address] Care Team Providers Care Public Accountant Name Role Phone Heri Haas MD Primary Care Provider Allergies No known active allergies Medications multivitamin [...] 1 tablet (75 mcg total) by mouth ore storage drier before breakfast Active ascorbic acid 500 mg [...] Type Department Care Team Description 08/10/2024 Telephone [facility] Medical Group Cardiology [address] [facility] [address] [place] [address] Montez Stock MD 08/09/2024 10:30 AM CDT Office Visit [facility] [address] [facility] [address] [place] [phone] Lyssa Ireland NP Cardiac arrhythmia, unspecified cardiac arrhythmia type (Primary Dx) 06/09/2024 Orders Only [facility] [address] [facility] [address] [address] Jose Luis Frazier III, MD [...] on file Legal Sex Female 3:37 AM TALENT DEVELOPMENT MANAGER Gender Identity Female 09/29/2018 9:09 AM CDT Sexual Orientation Straight 09/29/2018 9: 09 AM CDT Obstetrics History Last Filed Vital Signs Vital Sign Reading Time Taken Comments Blood Pressure 120/70 08/09/2024 10:20 AM CDT Pulse 70 03/08/2024 8:37 AM TALENT DEVELOPMENT MANAGER Temperature 36.2 C (97.1 F) 09/19/2023 10:31 AM CDT Respiratory Rate 14 10/14/2023 8:04 AM CDT Oxygen Saturation 98% 03/08/2024 8:37 AM TALENT DEVELOPMENT MANAGER Inhaled Oxygen Concentration - - Weight 73.8 [...] 01/06, 09/18/2014 Medical Devices Implanted Type Area Aws Consultant Device Identifier Shelf Expiration Date Model / Serial / Lot [employer] Vascade Mvp 6-12fr Venous Closure [id number] - [id number] Implanted:Qty: 1 on 01/16/2022 by Carlos Murphy MD at [facility] [employer] [id number] 10/18/2023 800-612C-1 0U / / [employer] Vascade Mvp 6-12fr Venous Closure [id number] - [id number] Implanted:Qty: 1 on 01/16/2022 by Carlos Murphy MD at [facility] [employer] 800-612C-1 0U / / [employer] Vascade Mvp 6-12fr Venous Closure [id number] - [id number] Implanted:Qty: 1 on 01/16/2022 by Carlos Murphy MD at [facility] 800-612C-1 0U / / [employer] Vascade Mvp 6-12fr Venous Closure [id number] - [id number] Implanted:Qty: 1 on 09/19/2023 by Carlos Murphy MD at [facility] 05/26/2025 800-612C-1 0U / / [id number] [employer] Vascade Mvp 6-12fr Venous Closure [id number] - [id number] Implanted:Qty: 1 on 09/19/2023 by Carlos Murphy MD at [facility] 05/26/2025 800-612C-1 0U / / [id number] [facility] [employer] Vascade Mvp 6-12fr Venous Closure [id number] - [id number] Implanted:Qty: 1 on 09/19/2023 by Carlos Murphy MD at [facility] 05/26/2025 800-612C-1 0U / / [id number] Procedures Procedure Name Priority Date/Time Associated Diagnosis Comments ECG 12-LEAD Routine 08/09/2024 10:20 AM CDT Cardiac arrhythmia, unspecified cardiac arrhythmia type from Last 3 Months Results * ECG 12 lead (08/09/2024 10:20 AM CDT) Sharon Moss COAL PICKER ECG ORDERABLES Shanelle l Result from Last 3 Months Insurance HUMANA CHOICE MEDICARE PPO HUMANA CHOICE MEDICARE PPO Care Teams Public Accountant Relationship Specialty Start Date End Date Heri Haas MD [facility] [place] [address] PCP - General Family Medicine 09/18/23
--- OUTSIDE RECORDS SUMMARY | 2024-08-12 07:03 | XMS_ITS | Clinical Summary ---
Author Organization [facility] Address [address] [place] [address] Care Team Providers Care Supervisor Shipping Name Role Phone Yvon Sow MD Primary Care Provider [phone] Source Comments [facility],non-owned Affiliates and Associated Physician Practices is amultiple site organization consisting of ambulatory clinics and hospital sitesin [place], [place], [place] and [place]. This disclosure is being madepursuant to the Care Everywhere program and may not contain all information available regarding this patient. Last updated 17.[facility] Allergies No known active allergies Medications * [...] on file Legal Sex Female 10:35 AM [employer] Gender Identity Not on file Sexual Orientation Not on file Last Filed Vital Signs Vital Sign Reading Time Taken Comments Blood Pressure 132/71 05/24/2021 12:40 PM [employer] Pulse 58 05/24/2021 12:15 PM [employer] Temperature 36.1 C (96.9 F) 05/24/2021 12:00 PM [employer] Respiratory Rate 14 05/24/2021 12:35 PM [employer] Oxygen Saturation 100% 05/24/2021 12:40 PM [employer] Inhaled Oxygen Concentration - - Weight 73.5 kg (162 lb) 05/24/2021 9:53 AM [employer] Height 185.4 cm (6' 1 ) 05/24/2021 9:53 AM [employer] Body Mass Index 21.37 05/24/2021 9:53 AM [employer] Plan of Treatment Health Maintenance Due Date [...] patient's age to complete this topic Insurance [facility] Care Teams Supervisor Shipping Relationship Specialty Start Date End Date Yvon Sow MD [address] [place] [address] PCP - General Family Medicine 05/24/21
--- NOTE | 2024-08-12 07:35 | SUR.PREOP ---
Patient found to be in Sinus rhythm on EKG. Confirmed results with Dr. Mosqueda. Patient sent home per Dr. Mosqueda and instructed to call the office for any questions.
--- NOTE | 2024-08-12 09:00 | ECG_ITS ---
Test Date: 2024-08-12 07:23:48 Measurements Intervals [place] Rate: 65 P: 72 OK: 214 QRS: 33 QRSD: 107 T: 45 QT: 428 QTc: 447 Interpretive Statements SINUS RHYTHM WITH MARKED SINUS ARRHYTHMIA POSSIBLE RIGHT VENTRICULAR CONDUCTION DELAY [RSR (QR) IN V1/V2] No previous ECG available for comparison Electronically Signed On 08-12-2024 10:08:56 CDT by Carlie Mosqueda M.D.
== END ==
LOC: ANHCATHLAB 01:09 → ANHCARD 07:05 → ANHCATHLAB 07:07
PROVIDERS: PCP Family Medicine; Visit Provider Internal Medicine
PROC: 5A2204Z Restoration of Cardiac Rhythm, Single (ICD-10-PCS; principal; 2024-08-12 08:30)
DX: I48.91 Unspecified atrial fibrillation (principal); I11.9 Hypertensive heart disease without heart failure; E03.9 Hypothyroidism, unspecified; Z98.890 Other specified postprocedural states; Z86.79 Personal history of other diseases of the circulatory system; Z80.0 Family history of malignant neoplasm of digestive organs; Z82.49 Family history of ischemic heart disease and other diseases of the circulatory system; Z53.8 Procedure and treatment not carried out for other reasons
CPT/HCPCS: 99211; G0463

== ENCOUNTER 2024-10-15 07:34 | Outpatient (CLI) | payer MEDICARE, SELFPAY ==
--- NOTE | ~2024-10-15 | DEXA_ITS ---
Bone Density Report Name: GARRETT BAGLEY Age: 74 Sex: Female Ethnicity: White Date of : 1950 Indication: postmenopausal; screening for osteoporosis; height loss; Referring Provider: LILI, HAILEE Gunn Study: Bone densitometry was performed. Exam Date: October 15, 2024 Accession number: [id number] Bone Density: Region BMD T-score Z-score Classification AP Spine(L1-L4) 0.971 -0.7 1.6 Normal Femoral Neck (Left) 1.010 1.5 3.4 Normal Total Hip (Left) 0.950 0.1 1.7 Normal Femoral Neck (Right) 0.934 0.8 2.7 Normal Total Hip (Right) 0.948 0.1 1.7 Normal Total Hip Mean 0.949 0.1 1.7 Normal World Health Organization criteria for BMD impression classify patients as: Normal (T-score at or above -1.0), Osteopenia (T-score between -1.0 and -2.5), or Osteoporosis (T-score at or below -2.5). 10-year Fracture Risk: FRAX not reported because: All T-scores for Spine Total, Hip Total, Femoral Neck at or above -1.0 Clinical Information Provided by Patient: Has used the following medications: HRT (i.e. estrogen/hormone therapy), Vitamin D, Calcium, Levothyroxine Patient maximum height was 73.0 Menopause Age: 49 No regular weight bearing exercise Drinks caffeinated beverages Onset of menses at age 15 Number of children 2 Impression: The patient has normal bone mass. Discussion: BONE DENSITY IS ABOVE THE MINIMUM DESIRABLE LEVEL AT ALL SKELETAL SITES TESTED. This patient?s bone mineral density is above the minimum desirable level (T-score -1.0 or better) at all sites measured. The patient should follow a healthful lifestyle (good nutrition with adequate calcium and vitamin D, and appropriate weight-bearing exercise). Follow-Up: Consider repeating this study in 5 years or sooner if there is some new clinical indication. Reported by: MYRA on 10/15/2024 8:14:00 AM. Reviewed, dictated and finalized at location A.
== END 2024-10-15 07:35 | disposition home or self-care (01) ==
LOC: MICIMG 07:34
PROVIDERS: PCP Family Medicine; Visit Provider Family Medicine
DX: Z78.0 Asymptomatic menopausal state (principal)
CPT/HCPCS: 77080

== ENCOUNTER 2024-11-24 09:52 | Outpatient (CLI) | payer MEDICARE, SELFPAY ==
--- NOTE | ~2024-11-24 | MR_ITS ---
MRI of the left shoulder Technique: Axial proton-density fat-sat images, coronal proton density fat-sat and T2 fat-sat images, and sagittal T1-weighted and T2 fat-sat images were acquired. Clinical History: Rotator cuff tear Findings: There is mild AC joint degenerative change. No subacromial spur. Coracoclavicular, coracoacromial, and coracohumeral ligaments appear intact. Supraspinatus and infraspinatus tendons are intact, without partial or full- thickness tear. There is moderate tendinosis of these tendons, especially distally. Subscapularis tendon intact. Tendon of the long head of the biceps is intact. No definite labral tear evident. Inferior glenohumeral ligament is intact. No significant degenerative change or effusion of the glenohumeral joint. There is fluid distention of the subacromial/subdeltoid bursa. Probable mild muscle edema of the central aspect of the supraspinatus muscle belly, partially imaged.. Impression: Rotator cuff tendinosis, without definite tear. Probable partially imaged mild edematous change of the central aspect of the supraspinatus muscle belly. This could reflect muscle strain or possibly other myositis. Mild subacromial/subdeltoid bursitis. Reviewed, dictated and finalized at location . Impression: Rotator cuff tendinosis, without definite tear. Probable partially imaged mild edematous change of the central aspect of the marx praspinatus muscle belly. This could reflect muscle strain or possibly other my ositis. Mild subacromial/subdeltoid bursitis.
== END 2024-11-24 09:53 | disposition home or self-care (01) ==
LOC: GOSHIMG 09:53
PROVIDERS: PCP Family Medicine; Visit Provider Nurse Practitioner
DX: M75.102 Unspecified rotator cuff tear or rupture of left shoulder, not specified as traumatic (principal); M75.32 Calcific tendinitis of left shoulder; M75.52 Bursitis of left shoulder
CPT/HCPCS: 73221

== ENCOUNTER 2025-02-03 13:05 | Outpatient (CLI) | payer MEDICARE, SELFPAY ==
--- NOTE | ~2025-02-03 | MM_ITS ---
EXAMINATION: MM screening [facility] BI w jerardo HISTORY: Screening TECHNIQUE: Craniocaudal and mediolateral oblique 3-D tomosynthesis images were obtained and synthetic 2-D images were generated. CAD analysis was submitted and interpreted. COMPARISON: Comparison to multiple prior studies sequentially, with oldest reviewed study dated 05/18/2018. BREAST PARENCHYMAL COMPOSITION: Not dense: There are scattered areas of fibroglandular density. FINDINGS: There is no evidence of suspicious mass, calcification, or architectural distortion to suggest malignancy in either breast. There has been no suspicious interval change. IMPRESSION: 1. No mammographic evidence of malignancy. 2. Recommend routine screening mammography in one year. BI-RADS Category 1: Negative Reviewed, dictated and finalized at location B.
== END 2025-02-03 13:06 | disposition home or self-care (01) ==
LOC: MICIMG 13:05
PROVIDERS: PCP Family Medicine; Visit Provider Family Medicine
DX: Z12.31 Encounter for screening mammogram for malignant neoplasm of breast (principal)
CPT/HCPCS: 77063; 77067